=== PATIENT | female | born 2000 ===

== ENCOUNTER → 2022-11-21 09:32 | Outpatient (BNV) | payer OTHER, SELFPAY ==
--- NOTE | 2022-11-21 09:32 | MHC.OFFVIS ---
Intake Intake Visit Reasons: Amb Documentation Allergies Seasonal Allergies Allergy (Intermediate, Verified 09/11/22 10:11) Runny Nose HPI HPI Comments History of Present Illness Details student coming in w/ another 'skin infection' just wanted someone to see it to determine if it's going to get like the last one. this lesion is on her left calf, it is about 1 in diameter of mild redness, and 1/2 inch of more increased redness, with a center white punctate. It looks like it will open soon. Teaching done. apply heat when not in school (wash w/ soap and water if opens and cover) do not squeeze it. area was marked w/ permanent marker and instructions to go to urgent care if starts to go outside the area of redness. 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
== END ==
PROVIDERS: Visit Provider Nurse Practitioner Family
DX: L08.9 Local infection of the skin and subcutaneous tissue, unspecified (principal)
CPT/HCPCS: 99213